=== PATIENT | female | born 1970 | race Caucasian/White ===

== ENCOUNTER 2019-08-02 18:01 | Emergency (ER) | payer MEDICAID ==
[2019-08-02] MEDS ORDERED: Bacitracin/Neomycin/Polymyxin B Oint 0.9 GM U/D Packet TOP ONE (18:11)
[2019-08-02 18:26] VITALS: BP 142/97; PULSE 98
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
== END 2019-08-02 19:38 | disposition home or self-care (01) ==
LOC: LL.ED 18:01
DX: S61.411A Laceration without foreign body of right hand, initial encounter (principal); F41.8 Other specified anxiety disorders; I51.9 Heart disease, unspecified; E78.2 Mixed hyperlipidemia; M15.0 Primary generalized (osteo)arthritis; G62.89 Other specified polyneuropathies; I48.91 Unspecified atrial fibrillation; I82.409 Acute embolism and thrombosis of unspecified deep veins of unspecified lower extremity; E78.00 Pure hypercholesterolemia, unspecified; J44.9 Chronic obstructive pulmonary disease, unspecified; F17.210 Nicotine dependence, cigarettes, uncomplicated; Z71.6 Tobacco abuse counseling; Z88.0 Allergy status to penicillin; Z88.5 Allergy status to narcotic agent; Z79.82 Long term (current) use of aspirin; Z79.01 Long term (current) use of anticoagulants; Z79.899 Other long term (current) drug therapy; W26.8XXA Contact with other sharp object(s), not elsewhere classified, initial encounter; Y93.G1 Activity, food preparation and clean up; Y92.009 Unspecified place in unspecified non-institutional (private) residence as the place of occurrence of the external cause
CPT/HCPCS: 12002; 36415; 85610; 99282; J2001